=== PATIENT | female | born 2000 | race Asian ===

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

== ENCOUNTER 2022-09-23 07:31 | Emergency (ER) | payer OTHER ==
[~2022-09-23] VITALS: Ht 160 cm; Wt 68.0 kg
[2022-09-23 07:36] VITALS: BP 124/74; TEMP 97.8
== END 2022-09-23 09:08 | disposition home or self-care (01) ==
LOC: ED 07:31
DX: O99.341 Other mental disorders complicating pregnancy, first trimester (principal)
CPT/HCPCS: 80307; 81002; 81025; 99283

== ENCOUNTER 2023-01-24 00:58 | Emergency (ER) | payer OTHER ==
[~2023-01-24] VITALS: Ht 160 cm; Wt 68.0 kg
[2023-01-24 01:05] VITALS: BP 116/73; TEMP 98.1
== END 2023-01-24 01:35 | disposition home or self-care (01) ==
LOC: ED 00:58
DX: L03.032 Cellulitis of left toe (principal); Z33.1 Pregnant state, incidental
CPT/HCPCS: 96372; 99283; J0696